=== PATIENT | female | born 1950 | race Caucasian/White ===

== ENCOUNTER 2016-09-07 15:13 | Outpatient (CLI) | payer OTHER, MEDICARE | END 2016-09-07 15:14 | disposition home or self-care (01) | DX: E78.5 Hyperlipidemia, unspecified (principal); E11.9 Type 2 diabetes mellitus without complications; Z79.899 Other long term (current) drug therapy ==

== ENCOUNTER 2017-07-23 15:05 | Outpatient (CLI) | payer BC, MEDICARE ==
--- NOTE | 2017-07-25 16:10 | DEXA Report ---
DEXA SCAN: 07/23/2017 CLINICAL INDICATION: Postmenopausal. TECHNIQUE: Dual energy x-ray absorptiometry (DXA) was performed on a [employer] system. Regions measured are the AP spine, femoral neck, and, if needed, forearm. COMPARISON: None. In accordance with the International Society for Clinical Densitometry (ISCD) guidelines, data from previous exams may be reanalyzed using current recommendations and techniques. This is done to allow a more accurate basis for comparison with the current study. FINDINGS The data for the lumbar spine is as follows: REGION BMD (g/cm/cm) T-SCORE Z-SCORE L1 0.946 -1.5 0.1 L2 1.109 -0.8 0.9 L3 1.126 -0.6 1.1 L4 1.130 -0.6 1.1 TOTAL L1-L4 1.086 -0.8 0.9 NOTE: All evaluable vertebrae are used for classification. The data for the hip is as follows: REGION BMD (g/cm/cm) T-SCORE Z-SCORE Neck 0.850 -1.3 0.3 TOTAL 0.956 -0.4 1.0 NOTE: The femoral neck or total proximal femur, whichever is lowest, is used for classification. IMPRESSION WHO CLASSIFICATION BASED ON INTERNATIONAL REFERENCE STANDARD IS OSTEOPENIA ( REFERENCE LEFT FEMORAL NECK). THE FRACTURE RISK IS INCREASED. RECOMMENDATION: Patients with diagnosis of osteoporosis or osteopenia should have regular bone mineral density assessment. For those eligible for Medicare, routine testing is allowed once every 2 years. Testing frequency can be increased for patients who have rapidly progressing disease or for those who are receiving medical therapy to restore bone mass. COMMENT: World Health Organization (WHO) definitions for osteoporosis and osteopenia: NORMAL BMD: T-score at 1.0 or higher, fracture risk is low. OSTEOPENIA BMD: T-score between 1.0 and -2.5, fracture risk is increased. OSTEOPOROSIS BMD: T-score at 2.5 or lower, fracture risk high. National Osteoporosis Foundation recommends: 1. Obtain adequate dietary calcium (at least 1200 mg per day) and vitamin D (400 -800 international units per day). 2. Participate, as appropriate, in regular weightbearing and muscle- strengthening exercise. 3. Avoid tobacco use and reduce alcohol and caffeine intake. 4. For more detailed information see the website at www.NOF.org. TD: 07/24/2017 18:06 CHRISTEN
== END 2017-07-23 15:06 | disposition home or self-care (01) ==
LOC: DI 15:05
PROVIDERS: ATTEND Internal Medicine
DX: M85.88 Other specified disorders of bone density and structure, other site (principal)
CPT/HCPCS: 77080

== ENCOUNTER 2018-04-25 15:18 | Outpatient (CLI) | payer BC, MEDICARE ==
--- NOTE | 2018-04-25 22:58 | XRAY Report ---
Reason: BILAT HIP PAIN Procedure Date: 04/25/2018 Accession Number: [id number] / [id number] Procedure: XR - Hips 2V BILAT CPT Code: FULL RESULT: EXAM: BILATERAL HIP RADIOGRAPHY EXAM DATE: 04/25/2018 03:47 PM. CLINICAL HISTORY: BILAT HIP PAIN. COMPARISON: None available. TECHNIQUE: 2 views each. FINDINGS: No acute fracture or dislocation. There are at least moderate degenerative changes of the hip joints bilaterally, including joint space narrowing and subchondral sclerosis of the femoral heads and acetabula. There are multilevel degenerative changes of the lumbosacral spine. There is an ovoid calcific density measuring 2.9 x 1.6 cm projecting over the left ilium on the AP projection, which may be in the gluteal soft tissues. This may represent a large injection granuloma or a site of old trauma. Stool throughout the visualized colon and rectum. IMPRESSION: No acute fracture or dislocation of the hip joints. Moderate degenerative joint disease bilaterally. RADIA
== END 2018-04-25 15:19 | disposition home or self-care (01) ==
LOC: DI 15:18
PROVIDERS: ATTEND Internal Medicine
DX: M16.0 Bilateral primary osteoarthritis of hip (principal)
CPT/HCPCS: 73521

== ENCOUNTER 2018-08-07 08:13 | Outpatient (CLI) | payer OTHER, BC, MEDICARE | END 2018-08-07 08:14 | disposition home or self-care (01) | LOC: EMS 08:13 | PROVIDERS: ATTEND Surgery | DX: R51 Headache (principal); M25.561 Pain in right knee; M53.3 Sacrococcygeal disorders, not elsewhere classified; W10.9XXA Fall (on) (from) unspecified stairs and steps, initial encounter; Y92.213 High school as the place of occurrence of the external cause | CPT/HCPCS: A0425; A0429 ==

== ENCOUNTER 2018-08-07 08:18 | Emergency (ER) | payer OTHER, BC, MEDICARE ==
--- NOTE | 2018-08-07 08:35 | ED Physician Documentation ---
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 slipped and fell about 3 steps, forward initially onto right knee, then rolled with pain in right lateral chest, head, and tailbone area (says did land onto tailbone when rolled over in the fall.). No: Syncope Fall distance: Standing position Where injury occurred: Work Timing - onset: Today Injury(ies) location: Head, Chest (right lateral), Back (low in the coccygeal ar ea), Right Lower Extremity (anterior knee). No: Neck Associated symptoms: No: LOC, AMS, Weakness, Paresthesias, Nausea / vomiting, Hematemesis Worsens with: Movement, Palpation Contributing factors: No: Anticoagulated, Intoxicated Similar symptoms before: Has not had sx before (no recent injuries, but has some mild balance problems at times with elvated ICP pressure.) Recently seen: Not recently seen Review of Systems Constitutional: denies: Fever, Chills Nose: denies: Rhinorrhea / runny nose, Congestion Throat: denies: Sore throat Respiratory: denies: Cough GI: denies: Abdominal Pain, Nausea, Vomiting, Diarrhea : denies: Dysuria, Frequency PD PAST MEDICAL HISTORY - Past Medical History Cardiovascular: None Respiratory: None Neuro: Other (some balance problems due to NPH, and is seeling neurology early next month) Endocrine/Autoimmune: None - Present Medications Home Medications: Ambulatory Orders Medication Instructions Recorded Confirmed ARIPiprazole [Abilify] 5 mg PO DAILY 08/07/18 08/07/18 Clonazepam 0.25 mg PO BID 08/07/18 08/07/18 FLUoxetine [PROzac] 10 mg PO DAILY 08/07/18 08/07/18 Losartan [Cozaar] 50 mg PO DAILY 08/07/18 08/07/18 Tramadol HCl 50 mg PO Q6H PRN #25 tablet 08/07/18 Trospium Chloride 20 mg PO BID 08/07/18 08/07/18 amLODIPine [Norvasc] 5 mg PO ONCE 08/07/18 08/07/18 busPIRone [Buspar] 1 tab PO BID 08/07/18 08/07/18 traZODone [Desyrel] 50 mg PO ONCE 08/07/18 08/07/18 - Allergies Allergies/Adverse Reactions: Allergies Allergy/AdvReac Type Severity Reaction Status Date / Time No Known Drug Allergies Allergy Verified 08/07/18 08:23 PD ED PE NORMAL - Vitals Vital signs reviewed: Yes - General General: Alert and oriented X 3, No acute distress, Well developed/nourished - HEENT HEENT: PERRL, EOMI, Pharynx benign, Dentition benign. No: Atraumatic (some tenderness right parietal area from the fall. ) - Neck Neck: Supple, no meningeal sign, No bony TTP, No adenopathy - Cardiac Cardiac: RRR, No murmur - Respiratory Respiratory: Clear bilaterally, Other (some right lateral chestwall tednerness without crepitance nor deformity.) - Abdomen Abdomen: Soft, Non tender - Back Back: No spinal TTP (but is tender at the lower sacral/coccygeal area without deformity.) - Derm Derm: Normal color, Warm and dry - Extremities Extremities: Other (right knee with anterior bruising but no effusion and good ROM. ) - Neuro Neuro: Alert and oriented X 3, No motor deficit, Normal speech Results - Vitals Vitals: Vital Signs - 24 hr 08/07/18 08/07/18 08/07/18 08:19 08:59 10:29 Temperature 35.7 C L Heart Rate 75 67 67 Respiratory 14 16 17 Rate Blood Pressure 155/80 H 156/76 H 139/70 H O2 Saturation 98 96 96 Oxygen O2 Source Room air PD MEDICAL DECISION MAKING - ED course Complexity details: reviewed results (CT head is good. CT chest without acute findings. CT pelvis showing small coccygeal/sacral fracture, nondisplaced. ), considered differential (knee with some bruising anterior but good ROM and no effusion. will need to get imaging of head, chest, pelvis though to be certain about injuries. ), d/w patient Departure - Departure Disposition: 01 Home, Self Care Clinical Impression: Fall from slip, trip, or stumble Qualifiers: Encounter type: initial encounter Qualified Code(s): W01.0XXA - Fall on same level from slipping, tripping and stumbling without subsequent striking against object, initial encounter Head contusion Qualifiers: Encounter type: initial encounter Contusion of head detail: scalp Qualified Code(s): S00.03XA - Contusion of scalp, initial encounter Chest wall contusion Qualifiers: Encounter type: initial encounter Laterality: right Qualified Code(s): S20.211A - Contusion of right front wall of thorax, initial encounter Knee contusion Qualifiers: Encounter type: initial encounter Laterality: right Qualified Code(s): S80.01XA - Contusion of right knee, initial encounter Closed coccygeal fracture Qualifiers: Encounter type: initial encounter Qualified Code(s): S32.2XXA - Fracture of coccyx, initial encounter for closed fracture Condition: Stable Record reviewed to determine appropriate education?: Yes Instructions: ED Fx Coccyx, ED Contusion Soft Tissue Follow-Up: Jose Carlos Mccrary MD [Primary Care Provider] - Prescriptions: Tramadol HCl 50 mg PO Q6H PRN #25 tablet PRN Reason: Pain Comments: Activity as you feel able. The sore areas of the knee ribs and head will just take a little time to get better. There are no fractures clinically evident or seen on scan. There is a mild hairline fracture of the tailbone that is just treated with local comfort of sitting on soft areas or pillows and using some Tylenol or ibuprofen as needed. Forms: Activity restrictions Discharge Date/Time: 08/07/18 11:20
--- NOTE | 2018-08-07 09:52 | CT Report ---
Reason: fall down steps, hit back of head Procedure Date: 08/07/2018 Accession Number: [id number] / [id number] Procedure: CT - Head W/O CPT Code: FULL RESULT: EXAM: CT HEAD EXAM DATE: 08/07/2018 09:32 AM. CLINICAL HISTORY: Fall down steps, hit back of head. COMPARISON: HEAD W/O 06/30/2015 4:03 PM. TECHNIQUE: Multiaxial CT images were obtained from the foramen magnum to the vertex. Reformats: Sagittal and coronal. IV contrast: None. In accordance with CT protocol optimization, one or more of the following dose reduction techniques were utilized for this exam: automated exposure control, adjustment of mA and/or KV based on patient size, or use of iterative reconstructive technique. FINDINGS: Parenchyma: No intraparenchymal hemorrhage. No evidence of mass, midline shift, or CT findings of acute infarction. Castillo-white differentiation is distinct. 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 Extraaxial Spaces: Normal for age. No subdural or epidural collections identified. Ventricles: The ventricles and cortical sulci are mildly enlarged, consistent with age-related tissue loss. Sinuses and orbits: Imaged paranasal sinuses, orbits, and mastoids show no significant abnormality. Bones: No evidence of fracture or calvarial defect. Other: None. IMPRESSION: 1. No intracranial hemorrhage, mass-effect, or other acute intracranial abnormality. 2. Generalized age-related cortical atrophic changes. RADIA
--- NOTE | 2018-08-07 09:57 | CT Report ---
Reason: fall down steps, pain right ribs Procedure Date: 08/07/2018 Accession Number: [id number] / [id number] Procedure: CT - Chest W/O CPT Code: FULL RESULT: EXAM: CT CHEST EXAM DATE: 08/07/2018 09:32 AM. CLINICAL HISTORY: Acute pain due to trauma. COMPARISONS: None. TECHNIQUE: Routine helical CT imaging was performed through the chest. IV contrast: None. Reconstructions: Coronal and sagittal. In accordance with CT protocol optimization, one or more of the following dose reduction techniques were utilized for this exam: automated exposure control, adjustment of mA and/or KV based on patient size, or use of iterative reconstructive technique. FINDINGS: Lungs/Pleura: No nodules, bronchial thickening, consolidation, or edema. Pulmonary vasculature is normal. No pericardial or pleural effusion. No pneumothorax. Mediastinum: Heart size is normal with no pericardial effusion. Mitral annulus and coronary artery calcification is seen. No lymphadenopathy. No mediastinal fluid collection. Bones: Diffuse degenerative changes are seen in the spine. No acute osseous abnormality is demonstrated including no displaced rib fracture or deformity. Visualized Abdomen: Unremarkable. Other: None. IMPRESSION: No acute cardiopulmonary or osseous abnormality demonstrated. RADIA
--- NOTE | 2018-08-07 09:58 | CT Report ---
Reason: fall down steps Procedure Date: 08/07/2018 Accession Number: [id number] / [id number] Procedure: CT - Cervical Spine W/O CPT Code: FULL RESULT: EXAM: CT CERVICAL SPINE WITHOUT CONTRAST DATE: 08/07/2018 09:32 AM. HISTORY: Fall down steps. COMPARISONS: HEAD W/O 06/30/2015 4:03 PM HEAD W/O 08/07/2018 9:07 AM. TECHNIQUE: Thin-section axial images were acquired of the cervical spine without contrast. Post-processing: Coronal and sagittal reformats. Other: None. In accordance with CT protocol optimization, one or more of the following dose reduction techniques were utilized for this exam: automated exposure control, adjustment of mA and/or KV based on patient size, or use of iterative reconstructive technique. FINDINGS: Alignment: No scoliosis or spondylolisthesis. Bones: No fracture or bone lesion. Interspace Levels/Facets: There are mild degenerative changes of the atlantodental joint. There is mild disk height loss and endplate osteophyte formation throughout the cervical spine, most advanced at the C5-C6, C6-C7, and C7-T1 levels. There are mild to moderate bilateral degenerative facet changes throughout the cervical spine, most advanced at the left C3-C4 facet. Musculature: Normal. No fatty atrophy. Other: The paravertebral and prevertebral soft tissues are unremarkable. The lung apices are clear. IMPRESSION: 1. No acute osseous abnormality of the cervical spine. 2. Degenerative changes throughout the cervical spine, as described above. RADIA
--- NOTE | 2018-08-07 10:03 | CT Report ---
Reason: fall down steps, pain coccygeal Procedure Date: 08/07/2018 Accession Number: [id number] / [id number] Procedure: CT - Pelvis W/O CPT Code: FULL RESULT: EXAM: CT BONY PELVIS WITHOUT CONTRAST EXAM DATE: 08/07/2018 09:32 AM. CLINICAL HISTORY: Acute pain due to trauma. COMPARISON: None. TECHNIQUE: Thin-section axial images were acquired of the pelvis without contrast. Post-processing: Coronal and sagittal reformats. Other: None. In accordance with CT protocol optimization, one or more of the following dose reduction techniques were utilized for this exam: automated exposure control, adjustment of mA and/or KV based on patient size, or use of iterative reconstructive technique. FINDINGS: Bones: There is subtle deformity of the lower sacrum at the sacrococcygeal junction suggesting nondisplaced fracture (image 177/7). The remainder osseous structures are intact. Mild degenerative changes are seen in the hip joints bilaterally. Alignment is preserved with no effusion. Degenerative changes are also noted in the lower lumbar spine. The sacroiliac joints appear intact. Musculature: Normal. No fatty atrophy. Pelvic Cavity: The visualized bowel, bladder, and reproductive organs are unremarkable on this noncontrast exam. Other: No lymphadenopathy. No free air or free fluid. The other visualized soft tissues are unremarkable. Calcified granuloma is seen in the left. Gluteal subcutaneous fat. IMPRESSION: Nondisplaced fracture at the sacrococcygeal junction suggested. No acute findings otherwise. RADIA
[2018-08-07 10:30] VITALS: BP 139/70
[2018-08-07] MEDS ORDERED: traMADol 50 MG TABLET PO STA (11:07)
== END 2018-08-07 11:20 | disposition home or self-care (01) ==
LOC: EDUNIT# → ED 08:18
DX: S00.03XA Contusion of scalp, initial encounter (principal); S20.211A Contusion of right front wall of thorax, initial encounter; S80.01XA Contusion of right knee, initial encounter; S32.2XXA Fracture of coccyx, initial encounter for closed fracture; W10.8XXA Fall (on) (from) other stairs and steps, initial encounter; Y93.89 Activity, other specified; Y92.89 Other specified places as the place of occurrence of the external cause; Y99.0 Civilian activity done for income or pay; G91.2 (Idiopathic) normal pressure hydrocephalus
CPT/HCPCS: 1040M; 70450; 71250; 72125; 72192; 99283

== ENCOUNTER 2018-09-17 07:07 | Outpatient (CLI) | payer BC, MEDICARE ==
[2018-09-17 07:55] LABS: BASOPHILS % (AUTO) 0.4 %; EOSINOPHILS # (AUTO) 0.1 10^3/uL (0.0-0.7); EOSINOPHILS % (AUTO) 2.1 %; HGB - HEMOGLOBIN 12.5 g/dL (12.0-16.0); LYMPHOCYTES # (AUTO) 1.6 10^3/uL (1.5-3.5); LYMPHOCYTES % (AUTO) 34.2 %; MEAN CORPUSCULAR HEMOGLOBIN 31.6 pg (27.0-31.0); MEAN CORPUSCULAR HGB CONC 33.9 g/dL (32.0-36.0); MEAN CORPUSCULAR VOLUME 93.2 fL (81.0-99.0); MEAN PLATELET VOLUME 8.2 fL (7.9-10.8); MONOCYTES # (AUTO) 0.5 10^3/uL (0.0-1.0); MONOCYTES % (AUTO) 11.5 %; NEUTROPHILS # (AUTO) 2.4 10^3/uL (1.5-6.6); NEUTROPHILS % (AUTO) 51.8 %; PLT - PLATELET COUNT 239 10^3/uL (130-450); RED BLOOD COUNT 3.95 10^6/uL (4.20-5.40); RED CELL DISTRIBUTION WIDTH 13.8 % (12.0-15.0); WHITE BLOOD COUNT 4.6 x10^3/uL (4.8-10.8)
[2018-09-17 08:13] LABS: HB2 TOTAL 13.9 g/dL; HEMOGLOBIN A1C 0.51 g/dL; HEMOGLOBIN A1C % 5.5 % (4.6-6.2)
[2018-09-17 08:29] LABS: ALBUMIN 4.5 g/dL (3.2-5.5); ALBUMIN/GLOBULIN RATIO 1.3 (1.0-2.2); ALKALINE PHOSPHATASE 52 IU/L (42-121); ALT ALANINE AMINOTRANSFERASE 16 IU/L (10-60); AST ASPARTATE AMINOTRANSFERASE 22 IU/L (10-42); BILIRUBIN,TOTAL 0.6 mg/dL (0.2-1.0); BUN - BLOOD UREA NITROGEN 28 mg/dL (6-20); CHOL/HDL RATIO 4.4 (<4.4); CHOLESTEROL 200 mg/dL; CREATININE 1.3 mg/dL (0.4-1.0); GFR - MDRD 41 (>89); HDL CHOLESTEROL 45 mg/dL; LDL CHOLESTEROL,CALCULATED 124 mg/dL; LDL/HDL RATIO 2.8 (<4.4); TOTAL PROTEIN 7.9 g/dL (6.7-8.2); VLDL CHOLESTEROL 31 mg/dL
[2018-09-17 09:15] LABS: CALCIUM 9.1 mg/dL (8.5-10.3); CARBON DIOXIDE - CO2 28 mmol/L (21-32); CHLORIDE 99 mmol/L (101-111); GLUCOSE 109 mg/dL (70-100); SODIUM 137 mmol/L (135-145)
[2018-09-17 10:02] LABS: THYROID STIMULATING HORMONE 3.31 uIU/mL (0.34-5.60)
[2018-09-17 10:06] LABS: FREE T4 (FREE THYROXINE) 0.75 ng/dL (0.58-1.64)
== END 2018-09-17 07:08 | disposition home or self-care (01) ==
LOC: LAB 07:07
PROVIDERS: ATTEND Nurse Practitioner Family
DX: E11.22 Type 2 diabetes mellitus with diabetic chronic kidney disease (principal); N18.3 Chronic kidney disease, stage 3 (moderate); E78.5 Hyperlipidemia, unspecified; I45.10 Unspecified right bundle-branch block
CPT/HCPCS: 36415; 80053; 80061; 83036; 83721; 84439; 84443; 85025

== ENCOUNTER 2018-10-02 14:11 | Outpatient (CLI) | payer BC, MEDICARE ==
--- NOTE | 2018-10-02 15:52 | CARDIAC PROCEDURE NOTE ---
DATE OF SERVICE: 10/02/2018 Physician: Ev Oliva MD, [facility] INDICATION: Chest pain. CARDIAC RISK FACTORS: Advanced age, postmenopausal status, family history of heart disease. PROCEDURE: After signing informed consent, the patient underwent a modified- Albino protocol treadmill stress test with Echo imaging at rest and at peak heart rate. RESTING HEART RATE: 75. PEAK HEART RATE: 111 (73% predicted maximal heart rate for age). Resting blood pressure: 140/78. Peak blood pressure: 180/80. Patient exercised for 3 minutes and 39 seconds on a modified-Albino protocol treadmill stress test, achieved a peak heart rate of 111 (73% PMHR) and 2.7 METs. The patient developed mild shortness of breath, had no chest pain. She developed fatigue and difficulty walking before achieving target heart rate. (She has Parkinson's, reported a broken tailbone and a poor gait.) RESTING ELECTROCARDIOGRAM: Normal sinus rhythm, right bundle branch block. PEAK ELECTROCARDIOGRAM: T-wave inversions in leads II, III, aVF, and V2 through V4. These changes all resolved after 1 minute of recovery. SUMMARY 1. Abnormal resting electrocardiogram. 2. Poor exercise tolerance. 3. Ischemic changes are present by electrocardiogram criteria at 73% predicted maximum heart rate. 4. Echo images reported separately. RECOMMENDATIONS: If her imaging shows no evidence of wall motion abnormalities, consider recheck using pharmaceutical stress test with nuclear myocardial perfusion imaging. cc: STANLEY Acosta TD: 10/02/2018 15:30 MTDD
== END 2018-10-02 14:12 | disposition home or self-care (01) ==
LOC: DI 14:11
PROVIDERS: ATTEND Nurse Practitioner Family
DX: R07.9 Chest pain, unspecified (principal); R94.31 Abnormal electrocardiogram [ECG] [EKG]; Z82.49 Family history of ischemic heart disease and other diseases of the circulatory system; Z78.0 Asymptomatic menopausal state
CPT/HCPCS: 93351

== ENCOUNTER 2018-10-11 06:54 | Emergency (ER) | payer BC, MEDICARE ==
[2018-10-11] MEDS ORDERED: traMADol 50 MG TABLET PO STA (07:32)
--- NOTE | 2018-10-11 07:36 | ED Physician Documentation ---
PD HPI LOWER EXT INJURY - Stated complaint Stated Complaint: LEFT KNEE PAIN - Chief complaint Chief Complaint: Trauma Ext - History obtained from History obtained from: Patient - History of Present Illness PD HPI LOW EXT INJURY LOCATION: Left, Knee Type of injury: Twist Where injury occurred: Home Timing - onset: Last night (2129 walking down the stairs) Timing - duration: Hours (12) Timing - details: Gradual onset Pain level max: 8 Pain level now: 4 Improved by: Rest, Ice, Immobilization Worsened by: Moving, Palpating Associated symptoms: No: Weakness, Numbness, Tingling, Swelling Recently seen: Not recently seen - Additional information Additional information: Patient normally walks unassisted at home. States difficulty ambulating today 2/2 pain. Has arthritis in the L knee. Review of Systems Ten Systems: 10 systems reviewed and negative Constitutional: denies: Fever, Chills Respiratory: denies: Cough GI: denies: Nausea, Vomiting, Diarrhea Skin: denies: Rash Musculoskeletal: denies: Neck pain, Back pain Neurologic: denies: Focal weakness, Numbness, Head injury PD PAST MEDICAL HISTORY - Past Medical History Past Medical History: Yes Cardiovascular: None Respiratory: None Neuro: Other Endocrine/Autoimmune: None GI: None [employer]: None : Incontinence Psych: None, Anxiety Musculoskeletal: Fibromyalgia Derm: None - Past Surgical History Past Surgical History: Yes Ortho: Rotator cuff repair, Carpal Tunnel surgery, Other - Present Medications Home Medications: Ambulatory Orders Medication Instructions Recorded Confirmed ARIPiprazole [Abilify] 5 mg PO DAILY 08/07/18 08/07/18 Clonazepam 0.25 mg PO BID 08/07/18 08/07/18 FLUoxetine [PROzac] 10 mg PO DAILY 08/07/18 08/07/18 Losartan [Cozaar] 50 mg PO DAILY 08/07/18 08/07/18 Tramadol HCl 50 mg PO Q6H PRN #25 tablet 08/07/18 Trospium Chloride 20 mg PO BID 08/07/18 08/07/18 amLODIPine [Norvasc] 5 mg PO ONCE 08/07/18 08/07/18 busPIRone [Buspar] 1 tab PO BID 08/07/18 08/07/18 traZODone [Desyrel] 50 mg PO ONCE 08/07/18 08/07/18 traMADol [Ultram] 50 - 100 mg PO Q6H PRN #14 tablet 10/11/18 - Allergies Allergies/Adverse Reactions: Allergies Allergy/AdvReac Type Severity Reaction Status Date / Time No Known Drug Allergies Allergy Verified 10/11/18 07:06 - Social History Does the pt smoke?: No Smoking Status: Never smoker Does the pt drink ETOH?: No Does the pt have substance abuse?: No - Immunizations Immunizations are current?: Yes - POLST Patient has POLST: No PD ED PE NORMAL - Vitals Vital signs reviewed: Yes - General General: Alert and oriented X 3, No acute distress - HEENT HEENT: Moist mucous membranes - Neck Neck: Supple, no meningeal sign - Cardiac Cardiac: RRR, Strong equal pulses - Respiratory Respiratory: No respiratory distress, Clear bilaterally - Derm Derm: Warm and dry - Extremities Extremities: Other (L knee - Full range of motion without pain. No bony tenderness. Neurovascular intact. No joint effusion. ACL, MCL, PCL, LCL intact. Unable to tolerate meniscus testing well.) - Neuro Neuro: Alert and oriented X 3 - Psych Psych: Normal mood, Normal affect Results - Vitals Vitals: Vital Signs - 24 hr 10/11/18 10/11/18 07:00 09:16 Temperature 36.0 C L Heart Rate 65 86 Respiratory 18 18 Rate Blood Pressure 135/68 H 130/67 O2 Saturation 98 98 Oxygen O2 Source Room air - Rads (name of study) L knee xray Radiology: Prelim report reviewed, EMP read contemporaneously, See rad report (DJD ) PD MEDICAL DECISION MAKING - ED course Complexity details: reviewed results, re-evaluated patient, considered differential, d/w patient ED course: 68-year-old female presents to the emergency department with left knee pain. She is ambulating quite well on a walker and pain controlled with tramadol. No acute findings on x-ray. No significant ligamentous injury. Will follow up with her doctor next week for repeat evaluation. Patient counseled regarding signs and symptoms for which I believe and urgent re-evaluation would be necessary. Patient with good understanding of and agreement to plan and is comfortable going home at this time This document was made in part using voice recognition software. While efforts are made to proofread this document, sound alike and grammatical errors may occur. As she is ambulating and tolerating ambulation well with a walker, held off on bracing at this time. Departure - Departure Disposition: 01 Home, Self Care Clinical Impression: Sprain of left knee Qualifiers: Encounter type: initial encounter Involved ligament of knee: unspecified ligament Qualified Code(s): S83.92XA - Sprain of unspecified site of left knee, initial encounter Condition: Good Instructions: ED Sprain Knee Follow-Up: Jose Carlos Mccrary MD [Primary Care Provider] - Within 1 week Prescriptions: traMADol [Ultram] 50 - 100 mg PO Q6H PRN #14 tablet PRN Reason: knee pain Comments: Use the walker to help you ambulate at home. Return if you worsen. Follow-up with your doctor for further evaluation and care. Your x-ray does not show any acute abnormalities today. Discharge Date/Time: 10/11/18 09:29
--- NOTE | 2018-10-11 08:24 | XRAY Report ---
Reason: twist, L knee pain Procedure Date: 10/11/2018 Accession Number: [id number] / [id number] Procedure: XR - Knee 4 View LT CPT Code: FULL RESULT: EXAM: LEFT KNEE RADIOGRAPHY EXAM DATE: 10/11/2018 08:08 AM. CLINICAL HISTORY: Twist, L knee pain. COMPARISON: None. TECHNIQUE: 4 views. FINDINGS: Bones: Normal. No fractures or bone lesions. Joints: Osteophyte patellofemoral compartment. Mild medial joint space narrowing. Small effusion. Soft Tissues: Normal. No soft tissue swelling. IMPRESSION: IVCTORINA VAIL
[2018-10-11 09:17] VITALS: BP 130/67
== END 2018-10-11 09:29 | disposition home or self-care (01) ==
LOC: ED 06:54
DX: S83.92XA Sprain of unspecified site of left knee, initial encounter (principal); X50.1XXA Overexertion from prolonged static or awkward postures, initial encounter; Y93.89 Activity, other specified; Y92.009 Unspecified place in unspecified non-institutional (private) residence as the place of occurrence of the external cause; M17.12 Unilateral primary osteoarthritis, left knee
CPT/HCPCS: 73564; 99283; A9270

== ENCOUNTER 2018-11-14 14:58 | Outpatient (CLI) | payer BC, MEDICARE | END 2018-11-14 14:59 | disposition home or self-care (01) | LOC: RT 14:58 | PROVIDERS: ATTEND Internal Medicine Cardiovascular Disease | DX: R07.89 Other chest pain (principal) | CPT/HCPCS: 93005 ==